=== PATIENT | female | born 1950 | race Two or more races ===

== ENCOUNTER 2019-10-23 07:06 | Day surgery (SDC) | payer OTHER ==
[~2019-10-23 07:06] MED LIST: COZAAR25 MG PO; DITROPAN XL5 MG PO; FOSAMAX70 MG PO; LIPITOR20 MG PO; MAXIMUM D3325 MCG PO; NEURONTIN300 MG PO; PLAVIX75 MG PO; PRECOSE25 MG PO; PROZAC20 MG PO; REMERON15 MG PO
[2019-10-23] MEDS ORDERED: PERCOCET 10-321 EACH PO (10:02)
== END 2019-10-23 13:40 | disposition home or self-care (01) ==
LOC: CIR.AMB 07:06
PROVIDERS: ATTEND Surgery
DX: R15.9 Full incontinence of feces (principal); Z20.828 Contact with and (suspected) exposure to other viral communicable diseases
CPT/HCPCS: 64581; C1778

== ENCOUNTER → 2019-10-31 06:00 | Outpatient (CLI) | payer OTHER ==
[~2019-10-31 06:00] MED LIST changes: +PERCOCET 10-321 EACH PO; +ULTRACET PO
== END | disposition home or self-care (01) ==
LOC: LAB 06:00 → EDSTATUS 11-02 11:59
PROVIDERS: ATTEND Surgery
DX: U07.1 COVID-19 (principal); R15.9 Full incontinence of feces; Z11.59 Encounter for screening for other viral diseases

== ENCOUNTER 2019-11-13 06:43 | Day surgery (SDC) | payer OTHER ==
[~2019-11-13 06:43] MED LIST changes: -ULTRACET PO
[2019-11-13] MEDS ORDERED: ULTRACET PO (10:48)
== END 2019-11-13 11:25 | disposition home or self-care (01) ==
LOC: CIR.AMB 06:43
PROVIDERS: ATTEND Surgery
DX: R15.9 Full incontinence of feces (principal)
CPT/HCPCS: 64590; 95972; L8679